=== PATIENT | male | born 2000 | race Caucasian/White ===

== ENCOUNTER 2023-05-07 00:11 | Inpatient (IN) ==
[2023-05-07] MEDS ORDERED: SODIUM CHLORIDE 0.9% 1,000 ML IV STA (00:27)
[2023-05-07] MEDS ORDERED: LORazepam 2 MG/1 ML VIAL IV STA (00:27)
[2023-05-07 00:53] LABS: Basophils # (auto) 0.05 K/uL (0.00-0.20); Basophils % (auto) 0.7 %; Eosinophils # (auto) 0.13 K/uL (0.00-0.50); Eosinophils % (auto) 1.9 %; Hematocrit (blood only) 40.6 % (42.0-52.0); Hemoglobin 14.9 g/dl (14.0-18.0); Immature Granulocytes # (auto) 0.01 K/uL (0.01-0.20); Immature Granulocytes % (auto) 0.1 %; Lymphocytes # (auto) 2.44 K/uL (1.20-3.40); Lymphocytes % (auto) 34.8 %; Mean Corpuscular Hemoglobin 31.1 pg (25.0-34.0); Mean Corpuscular Hgb Conc 36.7 g/dL (32.0-36.0); Mean Corpuscular Volume 84.8 fL (80.0-100.0); Monocytes # (auto) 0.76 K/uL (0.11-0.59); Monocytes % (auto) 10.8 %; Neutrophils # (auto) 3.62 K/uL (1.40-6.50); Neutrophils % (auto) 51.7 %; Platelet Count 252 K/uL (130-400); RDW Coefficient of Variation 11.9 % (11.5-14.5); RDW Standard Deviation 36.5 fL (36.4-46.3); Red Blood Count 4.79 M/uL (4.70-6.10); White Blood Count 7.01 K/ul (4.8-10.8)
--- NOTE | 2023-05-07 01:11 | Emergency Department Note ---
History of Present Illness General Chief complaint: Cardiac Assessment Stated complaint: CHEST PAIN,L ARM/FEET TINGLES,HEADACHE,NAUSEA Time Seen by Provider: 05/07/23 00:20 History of Present Illness Maximum Pain Intensity: 6 This 22-year-old male who suffers from anxiety presents to the ER complaining of chest pain today that is feeling better who said nerve and muscle pain for the past several months. Patient is not sure if this started when he started his behavioral health medication. Patient does suffer from anxiety. He also states he binge drank the other night. Patient denies fever, chills, abdominal pain, vomiting, diarrhea, IV drug use. Patient states he does do some regular exercise. Nothing recently excessive. Home Medications Medication Instructions Recorded Confirmed Type buspirone 10 mg tablet 20 mg PO BID 05/07/23 05/07/23 History multivitamin 1 tab PO DAILY 05/07/23 05/07/23 History Allergies Allergy/AdvReac Type Severity Reaction Status Date / Time Penicillins Allergy Severe FACE & Verified 05/07/23 01:01 THROAT SWELLS/RED RASH Past Med/Surg History Social History Smoking Status: Never smoker Preferred Language: Serbian Feels Safe at Home: Yes Review of Systems A total of 10 systems reviewed and were otherwise negative Physical Exam Vital Signs Vital Signs - 24 hr 05/07/23 00:14 05/07/23 00:46 05/07/23 01:00 Temperature 36.7 C Temperature Source Temporal Artery Scan Pulse Rate 86 82 73 Pulse Rate from SpO2 Sensor 81 71 Respiratory Rate 20 22 19 Respiratory Effort / Characteristics Non-Labored Spontaneous Respiratory Depth Normal Respiratory Pattern Regular Blood Pressure 142/101 H 133/90 129/80 Blood Pressure Mean 114 104 96 Blood Pressure Position Sitting Pulse Oximetry 97 97 97 Oxygen Delivery Method Room Air Room Air Room Air Sepsis Recent Fever Within 48 Hours No Sepsis New/Unexplained Change in Mental Status N/A Sepsis Action Taken by Nursing No Action Required 05/07/23 01:30 Temperature Temperature Source Pulse Rate 72 Pulse Rate from SpO2 Sensor 74 Respiratory Rate 19 Respiratory Effort / Characteristics Respiratory Depth Respiratory Pattern Blood Pressure 122/72 Blood Pressure Mean 88 Blood Pressure Position Pulse Oximetry 98 Oxygen Delivery Method Room Air Sepsis Recent Fever Within 48 Hours Sepsis New/Unexplained Change in Mental Status Sepsis Action Taken by Nursing VITALS: Vitals are noted on the nurse's note and reviewed by myself. Vital signs stable. GENERAL: Pleasant anxious appearing male, in no acute distress, nondiaphoretic, well-developed well-nourished. SKIN: The skin was without rashes, erythema, edema, or bruising. There is no tenting of the skin. Capillary reflex less than 2 seconds. HEAD: Normocephalic atraumatic. EARS: External auditory canals clear EYES: Pupils equal round and reactive to light and accommodation. Conjunctivae without injection, sclerae without icterus. Extraocular movements intact. NOSE: Patent, turbinates without inflammation or discharge. MOUTH: Mucous membranes moist. Pharynx without erythema or exudate. Uvula midline. Airway patent. Tongue does not deviate. NECK: Supple without nuchal rigidity. No lymphadenopathy. No thyromegaly. Cervical spine is nontender. No JVD. HEART: Regular rate and rhythm LUNGS: Clear to auscultation bilaterally without wheezes, rales or rhonchi. No retractions or accessory muscle use. ABDOMEN: Positive bowel sounds x 4. Normal tympanic percussion. Soft, nontender, without masses or organomegaly. Denise sign negative. No guarding or rebound tenderness. No CVA tenderness MUSCULOSKELETAL: No muscle atrophy, erythema, or edema noted. NEURO: Patient was alert and oriented to person place and time. Normal sensation to light and sharp touch. No focal neurological deficits. Course Administered Medications Sodium Chloride (Nss) 1,000 mls @ 999 mls/hr IV .Q1H1M ONE Stop: 05/07/23 02:49 Last Admin: 05/07/23 02:04 Dose: 999 mls/hr Documented By: SULEIMAN Discontinued Medications Sodium Chloride (Nss) 1,000 mls @ 999 mls/hr IV .Q1H1M STA Stop: 05/07/23 01:27 Last Infusion: 05/07/23 01:45 Dose: 0 mls/hr Documented By: Admin: 05/07/23 00:42 Dose: 999 mls/hr Documented By: SULEIMAN Lorazepam (Lorazepam 2 Mg/1 Ml Vial) 1 mg IV NOW STA Stop: 05/07/23 00:28 Last Admin: 05/07/23 00:42 Dose: 1 mg Documented By: SULEIMAN Medical Decision Making Medical Records Attestation: I reviewed the patient's medical records. Home Medications Current Medication List: was personally reviewed by me Laboratory Data Attestation: I reviewed the patient's lab results. 05/07/23 00:30 05/07/23 00:30 Lab Results 05/07/23 05/07/23 05/07/23 Range/Units 00:30 00:30 00:30 WBC 7.01 (4.8-10.8) K/ul RBC 4.79 (4.70-6.10) M/uL Hgb 14.9 (14.0-18.0) g/dl Hct 40.6 L (42.0-52.0) % MCV 84.8 (80.0-100.0) fL MCH 31.1 (25.0-34.0) pg MCHC 36.7 H (32.0-36.0) g/dL RDW Std Deviation 36.5 (36.4-46.3) fL RDW Coeff of Riya 11.9 (11.5-14.5) % Plt Count 252 (130-400) K/uL MPV 10.0 (9.4-12.4) fL Immature Gran % (Auto) 0.1 % Neut % (Auto) 51.7 % Lymph % (Auto) 34.8 % [place] % (Auto) 10.8 % Eos % (Auto) 1.9 % Baso % (Auto) 0.7 % Neut # (Auto) 3.62 (1.40-6.50) K/uL Lymph # (Auto) 2.44 (1.20-3.40) K/uL [place] # (Auto) 0.76 H (0.11-0.59) K/uL Eos # (Auto) 0.13 (0.00-0.50) K/uL Baso # (Auto) 0.05 (0.00-0.20) K/uL Immature Gran # (Auto) 0.01 (0.01-0.20) K/uL PT (9.0-12.0) Seconds INR (0.9-1.1) Sodium 136 (136-145) mmol/L Potassium 3.4 L (3.5-5.1) mmol/L Chloride 103 (98-107) mmol/L Carbon Dioxide 26 (21-32) mmol/L Anion Gap 7 (3-11) BUN 16 (6-23) mg/dl Creatinine 1.06 (0.6-1.4) mg/dl Est Cr Clr Drug Dosing 111.5 ml/min Est GFR ( Amer) 114.1 ml/min Est GFR (Non-Af Amer) 98.4 ml/min BUN/Creatinine Ratio 15.1 (10-20) Glucose 99 (70-99(Fasting)) mg/dl Calcium 9.7 (8.6-10.3) mg/dl Total Bilirubin 0.6 (0.2-1.0) mg/dl AST 175 H (13-39) U/L ALT 70 H (7-52) U/L Alkaline Phosphatase 60 (34-104) U/L Total Creatine Kinase 6133 H (30-223) U/L Troponin I High Sens 4.2 (0-20) pg/ml Total Protein 7.5 (6.0-8.3) gm/dl Albumin 4.8 (3.4-5.0) gm/dl Globulin 2.7 (2.5-4.0) gm/dl Albumin/Globulin Ratio 1.8 (0.9-2) Lipase 12 (11-82) U/L TSH 5.368 H (0.300-4.500) uIu/ml Free T4 0.99 (0.61-1.60) ng/dl 05/07/23 Range/Units 00:30 WBC (4.8-10.8) K/ul RBC (4.70-6.10) M/uL Hgb (14.0-18.0) g/dl Hct (42.0-52.0) % MCV (80.0-100.0) fL MCH (25.0-34.0) pg MCHC (32.0-36.0) g/dL RDW Std Deviation (36.4-46.3) fL RDW Coeff of Riya (11.5-14.5) % Plt Count (130-400) K/uL MPV (9.4-12.4) fL Immature Gran % (Auto) % Neut % (Auto) % Lymph % (Auto) % [place] % (Auto) % Eos % (Auto) % Baso % (Auto) % Neut # (Auto) (1.40-6.50) K/uL Lymph # (Auto) (1.20-3.40) K/uL [place] # (Auto) (0.11-0.59) K/uL Eos # (Auto) (0.00-0.50) K/uL Baso # (Auto) (0.00-0.20) K/uL Immature Gran # (Auto) (0.01-0.20) K/uL PT 11.9 (9.0-12.0) Seconds INR 1.1 (0.9-1.1) Sodium (136-145) mmol/L Potassium (3.5-5.1) mmol/L Chloride (98-107) mmol/L Carbon Dioxide (21-32) mmol/L Anion Gap (3-11) BUN (6-23) mg/dl Creatinine (0.6-1.4) mg/dl Est Cr Clr Drug Dosing ml/min Est GFR ( Amer) ml/min Est GFR (Non-Af Amer) ml/min BUN/Creatinine Ratio (10-20) Glucose (70-99(Fasting)) mg/dl Calcium (8.6-10.3) mg/dl Total Bilirubin (0.2-1.0) mg/dl AST (13-39) U/L ALT (7-52) U/L Alkaline Phosphatase (34-104) U/L Total Creatine Kinase (30-223) U/L Troponin I High Sens (0-20) pg/ml Total Protein (6.0-8.3) gm/dl Albumin (3.4-5.0) gm/dl Globulin (2.5-4.0) gm/dl Albumin/Globulin Ratio (0.9-2) Lipase (11-82) U/L TSH (0.300-4.500) uIu/ml Free T4 (0.61-1.60) ng/dl Imaging Data Attestation: I personally reviewed and interpreted this imaging study as follows: MDM Narrative Prior records/ancillary studies reviewed. Triage Nursing notes reviewed. Additional history obtained from nursing. The patient's history was concerning for chest pain with nerve tingling and muscle pain. Differential diagnosis: Etiologies such as cardiac ischemia, side effect behavior health medication, anxiety, stress, rhabdomyolysis, aortic dissection, pulmonary embolism, pneumonia, pneumothorax, musculoskeletal, infections, pericarditis, myocarditis, esophageal rupture, gastrointestinal, as well as others were entertained. Physical examination: As above. ER treatment provided: An order was placed for continuous cardiac monitoring. The monitor shows a rate of 60-100 with a sinus rhythm per my interpretation. IV fluids and Ativan were ordered On reassessment the patient felt better. Diagnostic interpretation by me: The electrocardiogram was negative for pathologic change. Ordered for chest pain EKG: Normal sinus, normal intervals, no acute ST-T wave changes. Impression normal sinus rhythm independently interpreted by myself I think arrhythmia is unlikely. EKG shows normal sinus rhythm with no interval abnormalities such as QT prolongation or WPW. There are no findings to suggest Brugada syndrome. Cardiac monitoring in the emergency department reveals no tachycardic or bradycardic dysrhythmia. Hypertrophic cardiomyopathy was considered but there are no clear historical elements pointing toward this. EKG is not suggestive. The QRS voltage is not extremely large and there are no suggestive Q waves. The labs Independently Interpreted by myself revealed no worrisome leukocytosis Elevated CPK Minimally elevated LFTs Imaging studies: Chest x-ray with no acute consolidation, pneumothorax or free air per my independent interpretation HEART SCORE: Hx: high/mod/low suspicion: 0 ECG: ST depression/nonspecific changes/normal: 0 Age: Greater than 65/45-64/less than 45: 0 Risk factors: (Hypertension, hyperlipidemia, diabetes, coronary disease, tobacco use, cocaine use): 0 Troponin: Greater than 2 times normal limits/1-2 times normal limits/normal: 0 Total: 0 Consultation: A consultation was placed with the hospitalist. The case was discussed and diagnostics were reviewed. The patient was evaluated in the ER for further treatment. Exam and history seem consistent with chest pain mostly related to anxiety and elevated CPK mostly related to rhabdomyolysis from excessive alcohol use. Most of the symptoms are most likely related to this. Labs and diagnostics were independently interpreted by myself. Patient was hydrated as above. Medicine was consulted. Patient will be admitted to the medical team. By the evaluation outlined above emergent etiologies such as cardiac ischemia, aortic dissection, pulmonary embolism, pneumonia, pneumothorax, infections, pericarditis, myocard itis, gastrointestinal, as well as others were deemed relatively unlikely. The pt informed about the findings as listed above. All questions were answered and pleased with the treatment. The chart was completed utilizing [employer] voice recognition software. Grammatical errors, random word insertions, pronoun errors, and incomplete sentences are an occassional consequence of this system due to software limitations, ambient noise, and hardware issues. Any formal questions or concer ns about the content, text, or information contained within the body of this dictation should be directly addressed to the physician insurance account assistant for clarification. Impression & Plan Rhabdomyolysis, Chest pain Discharge Plan Visit Data Chief Complaint: Cardiac Assessment Stated Complaint: CHEST PAIN,L ARM/FEET TINGLES,HEADACHE,NAUSEA ED Provider: Nichole Steven ED Midlevel Provider: Payal Cristina Discharge Problem: Rhabdomyolysis, Chest pain Patient Disposition: Admitted As Inpatient Condition: Good Discharge Instructions Krames/Other Patient Handouts: ED Chest Pain, Uncertain Cause, ED Panic Attack Activity Restrictions/Additional Instructions: Forms Stand Alone Forms: Virtual Emergency Department, Important Visit Information Prescriptions Prescriptions: No Action multivitamin Tablet 1 tab PO DAILY buspirone 10 mg Tablet 20 mg PO BID Referrals Referrals: PCP,NO [Physician] - Rhabdomyolysis Qualifiers: Rhabdomyolysis type: non-traumatic Qualified Code(s): M62.82 - Rhabdomyolysis Chest pain Qualifiers: Chest pain type: unspecified Qualified Code(s): R07.9 - Chest pain, unspecified
[2023-05-07 01:12] LABS: BUN Creatinine Ratio 15.1 (10-20); Calcium 9.7 mg/dl (8.6-10.3); Creatinine Clr Calc Pharmacy 111.5 ml/min; Est GFR (African American) 114.1 ml/min; Est GFR (Non-African American) 98.4 ml/min; Potassium 3.4 mmol/L (3.5-5.1)
[2023-05-07 01:18] LABS: Troponin I High Sensitivity 4.2 pg/ml (0-20)
[2023-05-07 01:27] LABS: Thyroid Stimulating Hormone 5.368 uIu/ml (0.300-4.500)
[2023-05-07 01:28] LABS: Albumin Globulin Ratio 1.8 (0.9-2); Albumin Level 4.8 gm/dl (3.4-5.0); Bilirubin,Total 0.6 mg/dl (0.2-1.0); Globulin 2.7 gm/dl (2.5-4.0); Total Protein 7.5 gm/dl (6.0-8.3)
[2023-05-07] MEDS ORDERED: SODIUM CHLORIDE 0.9% 1,000 ML IV ONE (01:49)
[2023-05-07] MEDS ORDERED: POTASSIUM CHLORIDE CRTAB 20 MEQ TABCR PO STA (02:00)
[2023-05-07 02:04] LABS: T4 Free Thyroxine 0.99 ng/dl (0.61-1.60)
[2023-05-07 02:21] LABS: INR 1.1 (0.9-1.1); Prothrombin Time 11.9 Seconds (9.0-12.0)
[2023-05-07 02:30] LABS: Magnesium 1.9 mg/dl (1.7-2.4)
--- NOTE | 2023-05-07 02:43 | History & Physical Report ---
Date of Service May 07, 2023 Assessment & Plan (1) Rhabdomyolysis: Plan: Elevated [id number]. Renal function is within normal range. Given 2L IVF in the ER -Continue aggressive hydration - LR at 200mL/hr -Monitor UOP -Repeat chemistry and CK in AM -Repeat LFTs in AM (2) Paresthesia: Plan: Unclear etiology. Has mild elevation of TSH and low normal T4 - uncertain if his paresthesias could be secondary to hypothyroid -Check B12 -Should have repeat TFTs - consider initiating Synthroid -Consider Neuro followup History of Present Illness Chief Complaint: rhabdomyolysis Primary Care Provider: [facility] Giuseppe Davis IV is a 22yo male with no significant past medical or surgical history presenting with rhabdomyolysis. Patient reports going to the gym several times per week. He has had pain in his calf muscles bilaterally for several days. He denies urinary complaints, no dark colored urine. Additionally patient reports one month of intermittent paresthesias in his hands, arms and legs. They come on intermittently and last several minutes. He also has occasional neck pain and a warm sensation in his neck as well as occasional headache, nausea and chest pain. No focal weakness, diplopia or urinary retention Allergies Allergy/AdvReac Type Severity Reaction Status Date / Time Penicillins Allergy Severe FACE & Verified 05/07/23 01:01 THROAT SWELLS/RED RASH Home Medications Medication Instructions Recorded Confirmed Type buspirone 10 mg tablet 20 mg PO BID 05/07/23 05/07/23 History multivitamin 1 tab PO DAILY 05/07/23 05/07/23 History Past Med/Surg History Medical History (Updated 05/07/23 @ 04:42 by Briseida Giordano DO) No significant past medical history Surgical History (Updated 05/07/23 @ 04:41 by Briseida Giordano DO) No significant past surgical history Family History (Updated 05/07/23 @ 04:42 by Briseida Giordano DO) Other Family history non-contributory Social History Smoking Status: Never smoker Preferred Language: Swedish Feels Safe at Home: Yes Review of Systems Review of Systems: All systems reviewed & are unremarkable except as noted in HPI & below Physical Exam Physical Exam: General: patient resting comfortably, NAD, non-toxic in appearance, AA&O x 4 Skin: warm, dry, intact, no rashes or lesions HEENT: NC/AT, PERRL, EOMI, anicteric sclera, conjunctiva without injection, external ear normal to inspection and nontender, nares patent, moist mucus membranes, dentition intact, no oropharyngeal lesions, neck supple, trachea midline, no LAD, no thyromegaly, no JVD Heart: +S1/S2, regular, no m/r/g Lungs: equal air entry bilaterally, no rales/rhonchi/wheezes Abd: +BS, soft, NT/ND, no masses/organomegaly/ascites Ext: warm, 2+ pulses in UE/LE bilaterally, no clubbing/cyanosis or edema Neuro: nonfocal, patient AA&O x 4, speech intact, no facial droop, moving all extremities on command with equal strength 5/5 Results & Data Results & Data Vital Signs (Past 12 Hours) Vital Signs Temp Pulse Resp BP Pulse Ox O2 Del Method 05/07/23 01:30 72 19 122/72 98 Room Air 05/07/23 01:00 73 19 129/80 97 Room Air 05/07/23 00:46 82 22 133/90 97 Room Air 05/07/23 00:14 36.7 C 86 20 142/101 H 97 Room Air Laboratory Results Laboratory Results WBC 7.01 K/ul (4.8-10.8) 05/07/23 00:30 RBC 4.79 M/uL (4.70-6.10) 05/07/23 00:30 Hgb 14.9 g/dl (14.0-18.0) 05/07/23 00:30 Hct 40.6 % (42.0-52.0) L 05/07/23 00:30 MCV 84.8 fL (80.0-100.0) 05/07/23 00:30 MCH 31.1 pg (25.0-34.0) 05/07/23 00:30 MCHC 36.7 g/dL (32.0-36.0) H 05/07/23 00:30 RDW Std Deviation 36.5 fL (36.4-46.3) 05/07/23 00:30 RDW Coeff of Riya 11.9 % (11.5-14.5) 05/07/23 00:30 Plt Count 252 K/uL (130-400) 05/07/23 00:30 MPV 10.0 fL (9.4-12.4) 05/07/23 00:30 Immature Gran % (Auto) 0.1 % 05/07/23 00:30 Neut % (Auto) 51.7 % 05/07/23 00:30 Lymph % (Auto) 34.8 % 05/07/23 00:30 [place] % (Auto) 10.8 % 05/07/23 00:30 Eos % (Auto) 1.9 % 05/07/23 00:30 Baso % (Auto) 0.7 % 05/07/23 00:30 Neut # (Auto) 3.62 K/uL (1.40-6.50) 05/07/23 00:30 Lymph # (Auto) 2.44 K/uL (1.20-3.40) 05/07/23 00:30 [place] # (Auto) 0.76 K/uL (0.11-0.59) H 05/07/23 00:30 Eos # (Auto) 0.13 K/uL (0.00-0.50) 05/07/23 00:30 Baso # (Auto) 0.05 K/uL (0.00-0.20) 05/07/23 00:30 Immature Gran # (Auto) 0.01 K/uL (0.01-0.20) 05/07/23 00:30 PT 11.9 Seconds (9.0-12.0) 05/07/23 00:30 INR 1.1 (0.9-1.1) 05/07/23 00:30 Sodium 136 mmol/L (136-145) 05/07/23 00:30 Potassium 3.4 mmol/L (3.5-5.1) L 05/07/23 00:30 Chloride 103 mmol/L (98-107) 05/07/23 00:30 Carbon Dioxide 26 mmol/L (21-32) 05/07/23 00:30 Anion Gap 7 (3-11) 05/07/23 00:30 BUN 16 mg/dl (6-23) 05/07/23 00:30 Creatinine 1.06 mg/dl (0.6-1.4) 05/07/23 00:30 Est Cr Clr Drug Dosing 111.5 ml/min 05/07/23 00:30 Est GFR ( Amer) 114.1 ml/min 05/07/23 00:30 Est GFR (Non-Af Amer) 98.4 ml/min 05/07/23 00:30 BUN/Creatinine Ratio 15.1 (10-20) 05/07/23 00:30 Glucose 99 mg/dl (70-99(Fasting)) 05/07/23 00:30 Calcium 9.7 mg/dl (8.6-10.3) 05/07/23 00:30 Magnesium 1.9 mg/dl (1.7-2.4) 05/07/23 00:30 Total Bilirubin 0.6 mg/dl (0.2-1.0) 05/07/23 00:30 AST 175 U/L (13-39) H 05/07/23 00:30 ALT 70 U/L (7-52) H 05/07/23 00:30 Alkaline Phosphatase 60 U/L (34-104) 05/07/23 00:30 Total Creatine Kinase 6133 U/L (30-223) H 05/07/23 00:30 Troponin I High Sens 4.2 pg/ml (0-20) 05/07/23 00:30 Total Protein 7.5 gm/dl (6.0-8.3) 05/07/23 00:30 Albumin 4.8 gm/dl (3.4-5.0) 05/07/23 00:30 Globulin 2.7 gm/dl (2.5-4.0) 05/07/23 00:30 Albumin/Globulin Ratio 1.8 (0.9-2) 05/07/23 00:30 Lipase 12 U/L (11-82) 05/07/23 00:30 TSH 5.368 uIu/ml (0.300-4.500) H 05/07/23 00:30 Free T4 0.99 ng/dl (0.61-1.60) 05/07/23 00:30 Ethyl Alcohol mg/dL < 10.0 mg/dl (<10.0) 05/07/23 01:56 PG Care Time/CCT Total # of Minutes Spent Total Time Spent with Patient: Total time spent is greater than 50% in coordination of care (as documented) at patient's floor/unit and/or counseling patient: Coding Level of Care Code 95099 INT INP/OBS CARE MIN Diagnoses Rhabdomyolysis M62.82 Rhabdomyolysis type: non-traumatic Paresthesia R20.2 (1) Rhabdomyolysis Rhabdomyolysis type: non-traumatic Qualified Code(s): M62.82 - Rhabdomyolysis
[2023-05-07] MEDS ORDERED: ACETAMINOPHEN 325 MG TAB PO PRN (04:39)
[2023-05-07] MEDS ORDERED: ONDANSETRON INJ 2 MG/ML 2 ML VIAL IV PRN (04:39)
[2023-05-07] MEDS: LACTATED RINGER'S 1,000 ML IV SCH ×5 (04:59→23:30)
--- NOTE | 2023-05-07 08:00 | XRay Report ---
XR chest 1V portable HISTORY: Chest pain, nonspecific COMPARISON: None. FINDINGS: The lungs are clear. Cardiac silhouette is normal in size. No pleural effusions. No pneumot horax. IMPRESSION: No acute process. ACT 112: Negative or not required by law. Electronically signed by: Venancio Cruz M.D. 05/07/2023 7:58 AM
[2023-05-07] MEDS: busPIRone 5 MG TAB PO SCH ×2 (08:14→21:19)
--- NOTE | 2023-05-07 09:26 | Electrocardiogram Report ---
Test Reason : Blood Pressure : / mmHG Vent. Rate : 078 BPM Atrial Rate : 078 BPM P-R Int : 138 ms QRS Dur : 094 ms QT Int : 388 ms P-R-T Axes : 056 078 062 degrees QTc Int : 442 ms Normal sinus rhythm with sinus arrhythmia Normal ECG No previous ECGs available Confirmed by Alexander Puckett ([id number]) on 05/07/2023 9:25:32 AM Referred By: [facility] Confirmed By:Alexander Puckett
--- NOTE | 2023-05-07 12:15 | Discharge Summary ---
Date of Service May 07, 2023 Admission HPI Per Admitting Provider Giuseppe Davis IV is a 22yo male with no significant past medical or surgical history presenting with rhabdomyolysis. Patient reports going to the gym several times per week. He has had pain in his calf muscles bilaterally for several days. He denies urinary complaints, no dark colored urine. Additionally patient reports one month of intermittent paresthesias in his hands, arms and legs. They come on intermittently and last several minutes. He also has occasional neck pain and a warm sensation in his neck as well as occasional headache, nausea and chest pain. No focal weakness, diplopia or urinary retention Admission Exam Per Admitting Provider General: patient resting comfortably, NAD, non-toxic in appearance, AA&O x 4 Skin: warm, dry, intact, no rashes or lesions HEENT: NC/AT, PERRL, EOMI, anicteric sclera, conjunctiva without injection, external ear normal to inspection and nontender, nares patent, moist mucus membranes, dentition intact, no oropharyngeal lesions, neck supple, trachea midline, no LAD, no thyromegaly, no JVD Heart: +S1/S2, regular, no m/r/g Lungs: equal air entry bilaterally, no rales/rhonchi/wheezes Abd: +BS, soft, NT/ND, no masses/organomegaly/ascites Ext: warm, 2+ pulses in UE/LE bilaterally, no clubbing/cyanosis or edema Neuro: nonfocal, patient AA&O x 4, speech intact, no facial droop, moving all extremities on command with equal strength 5/5 Principal Diagnosis rhabdomyolysis Discharge Exam Constitutional: well appearing, no acute distress HEENT: normocephalic, no conjunctival injection CV: regular rhythm, regular rate, no murmur, no LE edema Respiratory: Clear to auscultation bilaterally. No rhonchi, wheezes, or crackles. No increased work of breathing MSK: no gross deformities noted. No muscular pain with palpation Skin: warm, dry, no rashes Neuro: alert, oriented, no FND noted Discharge Data Allergies Allergy/AdvReac Type Severity Reaction Status Date / Time Penicillins Allergy Severe FACE & Verified 05/07/23 01:01 THROAT SWELLS/RED RASH Consultations 05/07/23 02:21 ED Decision to Admit Stat Hospital Course (1) Rhabdomyolysis: Pt is a 22 yo male with no significant PMH presenting due to muscular pain and paresthesias. He was found to be in rhabdomyolysis. Rhabdomyolysis - most likely due to exercise and dehydration d/t alcohol consumption - admission CK elevated to 6133; prior to discharge - no urinary color changes; Cr WNL; UA w/o - discussed precautions/causes and rhabdo Left arm paresthesia - chronic, intermittent; pt states these are no longer present upon examination - possibly related to hypothyroid state vs. intermittent nerve compression - recommend outpatient f/u Transaminitis - mild, in the setting of recent alcohol use - suspect transient elevation due to alcohol use and rhabdo - recommended repeat as outpatient to ensure downtrended Elevated TSH - unsure if true hypothyroidism d/t acute illness - recommended recheck as outpatient (2) Paresthesia: (3) Elevated TSH: Total Time Total Time Spent Total Time Spent (In Minutes): as per attending attestation Discharge Plan Discharge Items Patient Disposition: Home - Self-Care Reason For Visit: MUSCLE PAIN Discharge Diagnosis: rhabdomyolysis Condition on Discharge: Good Activity: Per Instructions section Non-emergency contact: Primary Care Provider Call non-emergency contact if: your symptoms worsen, your pain is unusual for you and your pain is concerning for you Follow-up/Referrals: [facility] [Primary Care Provider] - Diet: Regular Addtl Attending Provider Instructions: You were admitted to the hospital for muscle pain and numbness/tingling in your hands, legs, and arms. You were found to be in a condition called rhabdomyolysis. This is a condition where your muscles are being broken down usually due to dehydration/over exertion. You were treated with IV fluids. A discharge summary will be sent to your primary care physician to ensure continuity of care. Please bring this discharge summary with you to your next office appointment so that your provider can review it at that time. Medications: Your medication list has been reviewed and reconciled upon discharge to ensure accuracy and continuity of care. An updated list of all your medications is included with your hospital discharge paperwork. Please review this list closely and make note of any changes to your medications. [medication changes] Follow up appointments: - Make a follow up appointment with your PCP within the next week. It is very important that you follow up with them shortly after discharge from the hospital. - Keep all of your follow up appointments as already scheduled. If you cannot make an appointment, notify your provider. CONTACT YOUR PRIMARY CARE PROVIDER if you experience any of the following: - Difficulty following your treatment plan - Difficulty taking any of your medications CALL 911 OR GO TO THE EMERGENCY DEPARTMENT if you experience any of the following: - Sudden, severe abdominal pain or nausea/vomiting - Severe chest pain or chest pain that radiates to your jaw or arm - Sudden, severe shortness of breath or difficulty breathing Pending Studies at Discharge: No Stand-Alone Forms: [facility], Smoking Cessation Medications and DC Order Prescriptions: No Action multivitamin Tablet 1 tab PO DAILY buspirone 10 mg Tablet 20 mg PO BID Krames/Other Patient Handouts: Rhabdomyolysis Admission Data Admit Date/Time: 05/07/23 02:42 Attending Provider: Beto Samaniego Admit Provider: Briseida Giordano Primary Care Provider: [facility] Other Providers: Briseida Giordano Resident Activity Tracking Resident Involvement: Resident Care Provided Care Provided: Adult Hospital Medicine
[2023-05-07 13:57] LABS: Appearance Urine Clear (Clear); Bilirubin Urine Negative (Negative); Blood Urine Negative (Negative); Color Urine Yellow; Glucose Urine UA Negative (Negative); Ketones Urine Negative (Negative); Leukocyte Esterase Urine Negative (Negative); Nitrite Urine Negative (Negative); Protein Urine Negative (Negative); Specific Gravity Urine 1.006 (1.000-1.030); Urobilinogen Urine Negative (Negative); pH Urine 7.5 (4.5-7.5)
[2023-05-07 14:20] LABS: Amphetamines+Metham, Urine Neg (Neg); Barbiturates, Urine Neg (Neg); Benzodiazepine, Urine Neg (Neg); Cocaine, Urine Neg (Neg); MDMA (Ecstacy), Urine Neg (Neg); Methadone, Urine Neg (Neg); Opiate, Urine Neg (Neg); Phencyclidine, Urine Neg (Neg)
--- NOTE | 2023-05-07 14:38 | Hospitalist Progress Note ---
Date of Service May 07, 2023 Assessment & Plan (1) Rhabdomyolysis: Plan: Pt is a 22 yo male with no significant PMH presenting due to muscular pain and paresthesias. He was found to be in rhabdomyolysis. Rhabdomyolysis - most likely due to exercise and dehydration d/t alcohol consumption - admission CK elevated to 6133, downtrended to 3603 and stabilized to 3647 - d/t lack of consistent decline, concern for continuing muscle break down - increase IVF from 200 to 250 mL/hr; encouraged PO water intake - no urinary color changes; Cr WNL; UA w/o blood/heme - repeat CK again this evening and tomorrow AM; monitor Cr Left arm paresthesia - chronic, intermittent; pt states these are no longer present upon examination - possibly related to hypothyroid state vs. intermittent nerve compression - recommend outpatient f/u Transaminitis - mild, in the setting of recent alcohol use - suspect transient elevation due to alcohol use and rhabdo - repeat CMP tomorrow in addition to hepatitis screening Elevated TSH - unsure if true hypothyroidism d/t acute illness - recommended recheck as outpatient Diet: regular Code: full DVT ppx: low risk Dispo: med/surg (2) Paresthesia: (3) Elevated TSH: Admission and Anticipated Discharge Date Admission Date: May 07, 2023 Supervising Physician Co-Signing Physician Notes Attending attestation Pt seen and examined in concert with Dr. Salgado. In agreement with the documented findings as noted in the resident documentation with any exceptions or additions as noted here. Patient reports diffuse myalgias which have been present to some degree for a longer period of time but without other acute complaints or urinary changes reported. On examination, S1/S2 nl RRR no MCG. CTAB. Abd NT/ND BS+ve Rhabdomyolysis - multifactorial cause - initial downtrending of CK with fluid bolus but now plateau/uptrended. Continue IV hydration and encourage POI. UA as noted. Trend BMP and CK daily. Transaminitis - AST>ALT - may be rhabdo related. Screen for hepatitis in AM Paresthesias, bilateral UE, intermittent - no symptoms currently and seems to predate rhabdo. Monitor for symptoms and evaluate as indicated Elevated TSH - repeat as outpatient Else see resident documentation as noted. Subjective Pt feeling well this AM. No further muscle aches. He does note that his muscle have been achy and he has been feeling unwell for the past few months. No new concerns. Review of Systems Review of Systems: As per HPI Physical Exam Physical Exam: Constitutional: well appearing, no acute distress HEENT: normocephalic, no conjunctival injection CV: regular rhythm, regular rate, no murmur, no LE edema Respiratory: Clear to auscultation bilaterally. No rhonchi, wheezes, or crackles. No increased work of breathing MSK: no gross deformities noted Skin: warm, dry, no rashes Neuro: alert, oriented, no FND noted Results & Data Results & Data Vital Signs (Past 12 Hours) Vital Signs Temp Pulse Pulse Resp BP BP Pulse Ox 05/07/23 07:17 36.6 C 68 16 111/61 99 05/07/23 04:10 36.4 C L 95 H 16 123/69 97 05/07/23 04:39 36.4 C L 95 H 18 125/69 97 05/07/23 04:00 63 18 109/52 L 95 05/07/23 03:30 64 16 110/53 L 94 05/07/23 03:00 70 16 115/59 L 98 O2 Del Method 05/07/23 07:17 Room Air 05/07/23 04:10 Room Air 05/07/23 04:39 Room Air 05/07/23 04:00 Room Air 05/07/23 03:30 05/07/23 03:00 Resident Activity Tracking Resident Involvement: Resident Care Provided Care Provided: Adult Hospital Medicine (1) Rhabdomyolysis Rhabdomyolysis type: non-traumatic Qualified Code(s): M62.82 - Rhabdomyolysis
[2023-05-08] MEDS: LACTATED RINGER'S 1,000 ML IV SCH ×2 (02:53→06:47)
[2023-05-08 08:41] LABS: Hematocrit (blood only) 38.7 % (42.0-52.0); Hemoglobin 13.5 g/dl (14.0-18.0); Mean Corpuscular Hemoglobin 30.6 pg (25.0-34.0); Mean Corpuscular Hgb Conc 34.9 g/dL (32.0-36.0); Mean Corpuscular Volume 87.8 fL (80.0-100.0); Mean Platelet Volume 10.4 fL (9.4-12.4); Platelet Count 215 K/uL (130-400); RDW Standard Deviation 38.9 fL (36.4-46.3); Red Blood Count 4.41 M/uL (4.70-6.10); White Blood Count 5.19 K/ul (4.8-10.8)
[2023-05-08 08:44] LABS: Albumin Globulin Ratio 1.7 (0.9-2); BUN Creatinine Ratio 13.6 (10-20); Calcium 8.8 mg/dl (8.6-10.3); Creatinine Clr Calc Pharmacy 148.1 ml/min; Est GFR (African American) 145.2 ml/min; Est GFR (Non-African American) 125.3 ml/min; Globulin 2.4 gm/dl (2.5-4.0); Total Protein 6.4 gm/dl (6.0-8.3)
--- NOTE | 2023-05-08 10:07 | Discharge Summary ---
Date of Service May 08, 2023 Admission HPI Per Admitting Provider Giuseppe Davis IV is a 22yo male with no significant past medical or surgical history presenting with rhabdomyolysis. Patient reports going to the gym several times per week. He has had pain in his calf muscles bilaterally for several days. He denies urinary complaints, no dark colored urine. Additionally patient reports one month of intermittent paresthesias in his hands, arms and legs. They come on intermittently and last several minutes. He also has occasional neck pain and a warm sensation in his neck as well as occasional headache, nausea and chest pain. No focal weakness, diplopia or urinary retention Admission Exam Per Admitting Provider General: patient resting comfortably, NAD, non-toxic in appearance, AA&O x 4 Skin: warm, dry, intact, no rashes or lesions HEENT: NC/AT, PERRL, EOMI, anicteric sclera, conjunctiva without injection, external ear normal to inspection and nontender, nares patent, moist mucus membranes, dentition intact, no oropharyngeal lesions, neck supple, trachea midline, no LAD, no thyromegaly, no JVD Heart: +S1/S2, regular, no m/r/g Lungs: equal air entry bilaterally, no rales/rhonchi/wheezes Abd: +BS, soft, NT/ND, no masses/organomegaly/ascites Ext: warm, 2+ pulses in UE/LE bilaterally, no clubbing/cyanosis or edema Neuro: nonfocal, patient AA&O x 4, speech intact, no facial droop, moving all extremities on command with equal strength 5/5 Principal Diagnosis rhabdomyosis Discharge Exam Constitutional: well appearing, no acute distress HEENT: normocephalic, no conjunctival injection CV: regular rhythm, regular rate, no murmur, no LE edema Respiratory: Clear to auscultation bilaterally. No rhonchi, wheezes, or crackles. No increased work of breathing MSK: no gross deformities noted Skin: warm, dry, no rashes Neuro: alert, oriented, no FND noted Discharge Data Allergies Allergy/AdvReac Type Severity Reaction Status Date / Time Penicillins Allergy Severe FACE & Verified 05/07/23 01:01 THROAT SWELLS/RED RASH Consultations 05/07/23 02:21 ED Decision to Admit Stat Hospital Course (1) Rhabdomyolysis: Giuseppe Davis is a 22 y/o male with no significant PMH presenting due to muscular pain and paresthesias. He was found to be in rhabdomyolysis. Rhabdomyolysis - mild, resolving CK at 6133 on admit. Most likely due to exercise and dehydration d/t alcohol consumption. No urinary color changes. No signs of renal failure. Fluid resusc itated. CK improved. Recommend adequate PO intake. Rec recheck LFTs and thyroid levels outpatient. Hepatitis panel ordered and pending. Left arm paresthesia Chronic, intermittent; pt states these are no longer present upon examination. Possibly related to hypothyroid state vs. intermittent nerve compression. Recommend outpatient f/u. Transaminitis Mild, in the setting of recent alcohol use. Suspect transient elevation due to alcohol use and rhabdo. Repeat outpatient Elevated TSH Unsure if true hypothyroidism d/t acute illness. Recommended recheck as outpatient (2) Paresthesia: (3) Elevated TSH: Total Time Total Time Spent Total Time Spent (In Minutes): <30 Discharge Plan Discharge Items Patient Disposition: Home - Self-Care Reason For Visit: MUSCLE PAIN Discharge Diagnosis: rhabdomyolysis Condition on Discharge: Good Activity: Per Instructions section Non-emergency contact: Primary Care Provider Call non-emergency contact if: your symptoms worsen, your pain is unusual for you and your pain is concerning for you Follow-up/Referrals: [facility] [Primary Care Provider] - Diet: Regular Addtl Attending Provider Instructions: You were admitted to the hospital for muscle pain and numbness/tingling in your hands, legs, and arms. You were found to be in a condition called rhabdomyolysis. This is a condition where your muscles are being broken down usually due to dehydration/over exertion. You were treated with IV fluids. Some of your lab work was abnormal (elevated liver enzymes and thyroid). We did also check a liver panel. You will need to follow up on those results with your primary care physician. These should be rechecked after your hospitalization. A discharge summary will be sent to your primary care physician to ensure continuity of care. Please bring this discharge summary with you to your next office appointment so that your provider can review it at that time. Medications: Your medication list has been reviewed and reconciled upon discharge to ensure accuracy and continuity of care. An updated list of all your medications is included with your hospital discharge paperwork. Please review this list closely and make note of any changes to your medications. - No medications were added. Follow up appointments: - Make a follow up appointment with your PCP within the next week. It is very important that you follow up with them shortly after discharge from the hospital. - Keep all of your follow up appointments as already scheduled. If you cannot make an appointment, notify your provider. CONTACT YOUR PRIMARY CARE PROVIDER if you experience any of the following: - Difficulty following your treatment plan - Difficulty taking any of your medications CALL 911 OR GO TO THE EMERGENCY DEPARTMENT if you experience any of the following: - Sudden, severe abdominal pain or nausea/vomiting - Severe chest pain or chest pain that radiates to your jaw or arm - Sudden, severe shortness of breath or difficulty breathing Pending Studies at Discharge: Yes Studies:: Hepatitis Panel Stand-Alone Forms: My [employer], Smoking Cessation Medications and DC Order Prescriptions: Continued multivitamin Tablet 1 tab PO DAILY buspirone 10 mg Tablet 20 mg PO BID Discharge Orders: Discharge Order (Routine); Ordered 05/08/23 Ordered By: Candida Meyer/Other Patient Handouts: Rhabdomyolysis Admission Data Admit Date/Time: 05/07/23 02:42 Attending Provider: Jesus Zuñiga Admit Provider: Briseida Giordano Primary Care Provider: [facility] Other Providers: Briseida Giordano ; Beto Samaniego Other Interventions: Discharge Summary Assessment (RN) Last Done: 05/08/23 10:29 Supervising Physician Co-Signing Physician Notes Attending attestation I personally examined the patient and verified all zaman points of history and exam, discussed case, and agree with decision making with Dr Perez Feeling better and would like to go home. Vitals noted, in general he is awake and alert pleasant no distress. HEENT normocephalic atraumatic mucous membranes moist. Breathing unlabored no accessory muscle use good effort. Skin shows no rashes no pallor or icterus. Rhabdomyolysis - multifactorial cause - Probably predominantly dehydration (post alcohol) and working outstable for home. Discussed gentle activity restrictions for the next week, as well as rational ramping up of activity and hydration. Transaminitis - AST>ALT - may be rhabdo related, Although more likely alcohol. hepatitis panel pending, recommend follow-up LFTs in about a week Paresthesias, bilateral UE, intermittent - no symptoms currently and seems to predate rhabdo. outpatient follow-up Elevated TSH - repeat as outpatient Else see resident documentation as noted. Resident Activity Tracking Resident Involvement: Resident Care Provided Care Provided: Adult Hospital Medicine
[2023-05-08] MEDS: busPIRone 5 MG TAB PO SCH (10:25)
--- NOTE | 2023-05-08 18:09 | Billing Data ---
Date of Service May 08, 2023 Coding Level of Care Code 19299 IN/OBS DISCH 30 MIN/LESS
[2023-05-09 14:13] LABS: HBSAG NON-REACTIVE (NON-REACTIVE); Hepatitis A Antibody IgM NON-REACTIVE (NON-REACTIVE); Hepatitis B Core Antibody IgM NON-REACTIVE (NON-REACTIVE)
== END 2023-05-08 11:17 | disposition home or self-care (01) | DRG 558 ==
LOC: EDBD → ED 00:11 → 3N 02:42 → SUATTDRO 02:42 → 3N 04:13